=== PATIENT | female | born 1950 | race Caucasian/White ===

== ENCOUNTER → 2018-12-21 08:48 | Outpatient (CLI) | payer OTHER | END | disposition home or self-care (01) | LOC: D.MRI 08:30 | DX: M54.2 Cervicalgia (principal) ==

== ENCOUNTER 2018-12-28 19:00 | Outpatient (CLI) | payer OTHER | END 2018-12-28 23:59 | disposition home or self-care (01) | LOC: D.MAMMO 19:00 | PROVIDERS: ATTEND Nurse Practitioner Family | DX: Z12.31 Encounter for screening mammogram for malignant neoplasm of breast (principal) ==

== ENCOUNTER → 2019-02-10 16:39 | Outpatient (CLI) | payer OTHER | END | disposition home or self-care (01) | LOC: D.MAMMO 01-18 14:30 | PROVIDERS: ATTEND Nurse Practitioner Family | DX: R92.8 Other abnormal and inconclusive findings on diagnostic imaging of breast (principal) ==

== ENCOUNTER → 2019-09-21 10:38 | Outpatient (CLI) | payer OTHER | END | disposition home or self-care (01) | LOC: D.MAMMO 07-27 08:30 → D.US 10:38 → D.MAMMO 11:00 | PROVIDERS: ATTEND Nurse Practitioner Family | DX: R92.8 Other abnormal and inconclusive findings on diagnostic imaging of breast (principal) ==

== ENCOUNTER 2020-05-30 11:00 | Outpatient (CLI) | payer OTHER | END 2020-05-30 12:00 | disposition home or self-care (01) | LOC: D.MAMMO 11:00 | PROVIDERS: ATTEND Nurse Practitioner Family | DX: R92.8 Other abnormal and inconclusive findings on diagnostic imaging of breast (principal) ==

== ENCOUNTER 2021-01-30 17:13 | Emergency (ER) | payer MEDICARE ==
[~2021-01-30] VITALS: Ht 165.1 cm; Wt 70.5 kg
[2021-01-30 17:54] VITALS: Ht 165.1 cm; Wt 70.5 kg
[2021-01-30] MEDS ORDERED: GABAPENTIN300 MG PO (17:56)
[2021-01-30] MEDS ORDERED: LISINOPRIL40 MG PO (17:57)
[2021-01-30] MEDS ORDERED: LIPITOR10 MG PO (17:57)
[2021-01-30] MEDS ORDERED: FARXIGA10 MG PO (17:57)
[2021-01-30] MEDS ORDERED: ZANAFLEX4 MG PO (17:58)
[2021-01-30] MEDS ORDERED: PEPCID40 MG PO (17:58)
[2021-01-30] MEDS ORDERED: GLUCOPHAGE1000 MG PO (17:59)
[2021-01-30] MEDS ORDERED: TRAZODONE HCL100 MG PO (17:59)
[2021-01-30 18:34] LABS: BASOPHILS 0.2 % (0-2); EOSINOPHILS 0.4 % (0-7); HEMATOCRIT 45.1 % (36.0-48.0); HEMOGLOBIN 14.6 g/dL (12-16); IMMATURE GRANULOCYTES 1.2 % (0-5); LYMPHOCYTE ABS# 1.49 10x3/uL (1.18-3.74); LYMPHOCYTES 11.6 % (15-50); MCH 28.8 pg (26.0-34.0); MCHC 32.4 g/dL (31.0-37.0); MEAN PLATELET VOLUME 9.8 fL (7.4-10.4); MONOCYTES 10.4 % (2-11); NEUTROPHIL ABS# 9.76 10x3/uL (1.56-6.13); NEUTROPHILS 76.2 % (40-80); RBC 5.07 10x6/uL (4.00-5.40); RDW 13.3 % (11.5-14.5); WBC 12.8 10x3/uL (4.8-10.8)
[2021-01-30 18:35] LABS: PLATELET COUNT 398 10x3/uL (130-400)
[2021-01-30 18:48] LABS: CALC OSMOLALITY 275 mosm/kg (275-300); CALCIUM 9.1 mg/dL (8.5-10.1); CARBON DIOXIDE 25.6 mmol/L (21.0-32.0); CHLORIDE - SERUM 97 mmol/L (98-107); CREATININE - SERUM 1.5 mg/dL (0.6-1.3); SODIUM 131 mmol/L (136-145); UREA NITROGEN 27 mg/dL (7-18); eGFR NON AFRICAN AMERICAN 36 mL/min (90-120)
[2021-01-30 18:54] LABS: ALKALINE PHOSPHATASE 106 U/L (30-120); ALT (SGPT) 15 U/L (10-68); AMYLASE - SERUM 19 U/L (25-115); BILIRUBIN - TOTAL 0.23 mg/dL (0.2-1.3); GLUCOSE 246 mg/dL (74-106); PROTEIN - SERUM 7.3 g/dL (6.4-8.2)
[2021-01-30 18:55] LABS: ALBUMIN 2.4 g/dL (3.4-5.0); LIPASE 49 U/L (73-393); TROPONIN-I < 0.017 ng/mL (0.000-0.060)
[2021-01-30] MEDS ORDERED: BENTYL 20 MG TA20 MG PO (21:26)
[2021-01-30] MEDS ORDERED: ZOFRAN ODT4 MG/UDTAB PO (21:26)
[2021-01-30 21:44] LABS: BILIRUBIN NEGATIVE (NEGATIVE); KETONE NEGATIVE (NEGATIVE); NITRITE NEGATIVE (NEGATIVE); UROBILINOGEN NORMAL mg/dL (< 2)
[2021-01-30 21:46] VITALS: BP 111/66
[2021-01-30 21:50] LABS: BACTERIA MANY HPF (NONE SEEN); SQUAMOUS EPITHELIAL 0-5 HPF (0-4); WHITE CELLS - URINE 25-50 HPF (0-4)
== END 2021-01-30 22:17 | disposition home or self-care (01) ==
LOC: D.ER 17:13
PROVIDERS: Family Medicine
DX: R19.7 Diarrhea, unspecified (principal); R11.2 Nausea with vomiting, unspecified; I10 Essential (primary) hypertension; E11.9 Type 2 diabetes mellitus without complications; Z79.84 Long term (current) use of oral hypoglycemic drugs